=== PATIENT | male | born 1945 | race Caucasian/White ===

== ENCOUNTER 2017-10-18 09:34 | Emergency (ER) | payer OTHER ==
[2017-10-18 09:43] VITALS: BP 141/73; TEMP 99.7; BMI 23.1
--- NOTE | 2017-10-18 10:42 | ED.PDOC ---
General ED Provider: Dr. 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 all times ) Mode of Arrival: Walk-In Information Source: Patient Exam Limitations: No limitations Primary Care Provider: KRISTI SHI Nursing and Triage Documentation Reviewed and Agree: Yes Reviewed sepsis parameters & appropriate labs ordered?: Yes System Inflammatory Response Syndrome: Not Applicable Sepsis Protocol: For patient's 13 years and over: Temp is 96.8 and below OR 101 and greater Pulse >90 BPM Resp >20/minute Acutely Altered Mental Status Are patient's symptoms suggestive of a new infection, such as: -Pneumonia -Skin, Soft Tissue -Endocarditis -UTI -Bone, Joint Infection -Implantable Device -Acute Abdominal Infection -Wound Infection -Meningitis -Blood Stream Catheter Infection -Unknown System Inflammatory Response Syndrome: Not Applicable Review of Systems - Review Of Systems Constitutional: Reports: Malaise, Weakness, Loss of appetite Eyes: Reports: No symptoms Ears, Nose, Mouth, Throat: Reports: No symptoms Respiratory: Reports: Cough Cardiac: Reports: No symptoms GI: Reports: No symptoms : Reports: No symptoms Musculoskeletal: Reports: No symptoms Skin: Reports: No symptoms Neurological: Reports: No symptoms Endocrine: Reports: No symptoms Hematologic/Lymphatic: Reports: No symptoms All Other Systems: Reviewed and Negative Past Medical History - Past Medical History Previously Healthy: Yes Endocrine: Reports: None Cardiovascular: Reports: None Respiratory: Reports: None Hematological: Reports: None Gastrointestinal: Reports: None Genitourinary: Reports: None Neuro/Psych: Reports: None Musculoskeletal: Reports: None Cancer: Reports: None - Surgical History General Surgical History: Reports: None - Family History Family History: Reports: None - Social History Smoking Status: Former smoker Hx Substance Use: No Alcohol Screening: None Physical Exam - Physical Exam Appearance: Well-appearing, No pain distress, Well-nourished Eyes: TAHIR, EOMI, Conjunctiva clear ENT: Ears normal, Nose normal, Oropharynx normal Respiratory: Airway patent, Breath sounds clear, Breath sounds equal, Respirations nonlabored Cardiovascular: RRR, Pulses normal, No rub, No murmur GI/: Soft, Nontender, No masses, Bowel sounds normal, No Organomegaly Musculoskeletal: Normal strength, ROM intact, No edema, No calf tenderness Skin: Warm, Dry, Normal color Neurological: Sensation intact, Motor intact, Reflexes intact, Cranial nerves intact, Alert, Oriented Psychiatric: Affect appropriate, Mood appropriate Critical Care Note - Critical Care Note Total Time (mins): 0 Course - Course Orders, Labs, Meds: Lab Review 10/18/17 10:14 Influenza A (Rapid) Negative by naat Influenza B (Rapid) Positive by naat H Orders Category Date Time Status CBC W/ AUTO DIFF Stat LAB 10/18/17 10:22 Ordered FLU A/B MOLECULAR Stat LAB 10/18/17 10:14 Completed RAPID STREP SCREEN [MOLECULAR GROUP A STREP] Stat LAB 10/18/17 10:[address] CHEST W/O CONTRAST Stat RADS 10/18/17 10:23 Taken Vital Signs: Temp Pulse Resp BP Pulse Ox 10/18/17 09:35 99.7 F H 75 20 141/73 H 93 L Departure - Departure Time of Disposition: 11:00 Disposition: HOME SELF-CARE Discharge Problem: Cough, Influenza Instructions: Influenza (ED) Condition: Good Pt referred to PMD for follow-up: Yes IPMP verified?: Yes Additional Instructions: Please call your Family Physician as soon as possible to schedule a follow-up appointment. Allergies/Adverse Reactions: Allergies No Known Allergies Allergy (Verified 10/18/17 09:44) Home Medications: Ambulatory Orders Celecoxib [Celebrex] 200 mg PO DAILY 02/14/14 Omeprazole [Prilosec] 20 mg PO DAILY 02/14/14 Simvastatin 20 mg PO DAILY 02/14/14 Tramadol HCl [Ultram] 50 mg PO DIRECTED PRN 02/14/14 Disposition Discussed With: Patient
--- NOTE | 2017-10-18 10:49 | CT ---
EXAM: CT of the chest without contrast History: Cough. Comparison: Chest radiograph 06/28/2018 Technique: Multiplanar CT images through the thorax were obtained without the administration of IV c ontrast Findings: Heart size is normal. Coronary calcifications. No pathologically enlarged thoracic lymph nodes. There are partially calcified mediastinal and hilar lymph nodes. Great vessels are unremark able. Mild to moderate emphysema. No consolidation. No pleural fluid and no pneumothorax. No suspicious l tahira masses or lung nodules. Mild diffuse bronchial wall thickening. Within the visualized upper abdomen, calcified granulomas within the spleen. Right nephrolithiasis w ith largest stone measuring 3 mm. Partially visualized abdominal aortic aneurysm measuring 3.9 cm in caliber. No acute osseous abnormalities. Degenerative disc disease within the visualized lower cer vical spine. The Impression: 1. No evidence for pneumonia. 2. Mild diffuse bronchial wall thickening. 3. Emphysema. 4. Coronary artery disease. 5. Partially visualized abdominal aortic aneurysm measuring up to 3.9 cm in caliber. 6. Nonobstructing right nephrolithiasis
== END 2017-10-18 11:05 | disposition home or self-care (01) ==
LOC: ED 09:34
DX: J10.1 Influenza due to other identified influenza virus with other respiratory manifestations (principal); Z79.899 Other long term (current) drug therapy
CPT/HCPCS: 87502; 87651; 99283

== ENCOUNTER 2018-02-19 10:55 | Emergency (ER) | payer OTHER ==
--- NOTE | 2018-02-19 11:02 | ED.PDOC ---
General ED Provider: Dr. KRISTI SHI-ER Chief Complaint: Sore Throat Stated Complaint: rené got allergies and bronchitis Time Seen by Physician: 11:00 Mode of Arrival: Walk-In Information Source: Patient Exam Limitations: No limitations Primary Care Provider: KRISTI SHI Nursing and Triage Documentation Reviewed and Agree: Yes Reviewed sepsis parameters & appropriate labs ordered?: Yes System Inflammatory Response Syndrome: Not Applicable Sepsis Protocol: For patient's 13 years and over: Temp is 96.8 and below OR 101 and greater Pulse >90 BPM Resp >20/minute Acutely Altered Mental Status Are patient's symptoms suggestive of a new infection, such as: -Pneumonia -Skin, Soft Tissue -Endocarditis -UTI -Bone, Joint Infection -Implantable Device -Acute Abdominal Infection -Wound Infection -Meningitis -Blood Stream Catheter Infection -Unknown Respiratory Complaint Exam - Respiratory Complaint/Exam Onset/Duration: 2 dys Symptoms Are: Still present Timing: Intermittent Initial Severity: Mild Current Severity: Mild Location: Nose, Chest Character: Reports: Productive cough Aggravating: Reports: URI Associated Signs and Symptoms: Reports: URI, Nasal congestion, Sore throat. Denies: Rapid breathing, Dyspnea, Fever, Chills, Chest pain, Pleuritic chest pain, Wheezing, Hemoptysis, Dizziness, Calf pain, Calf swelling, Edema, Hoarseness, Sinus discomfort, Vomiting, Weight loss History of Healthcare-Acquired Pneumonia: No Pseudomonas Risk Factors: Reports: None Tuberculosis Risk Factors: Reports: None Status Asthmaticus Risk Factors: Reports: None Home Oxygen Use: No Recent Stress Test: No Recent Echo/LV Function: No Current Antibiotic Use: No Current Asthma Medication Use: No Respiratory Distress: None Inadequate Respiratory Effort: No Dysphagia Present: No Stridor Present: No JVD Present: No Accessory Muscle Use: No Retractions: Diaphragmatic Diminished Breath Sounds: No Sinus Tenderness: None Grunting Respirations: No Kussmaul Respirations: No Differential Diagnoses: Bronchitis, Sinusitis, URI Review of Systems - Review Of Systems Constitutional: Reports: No symptoms Eyes: Reports: No symptoms Ears, Nose, Mouth, Throat: Reports: No symptoms, Nose discharge Respiratory: Reports: Cough Cardiac: Reports: No symptoms GI: Reports: No symptoms : Reports: No symptoms Musculoskeletal: Reports: No symptoms Skin: Reports: No symptoms Neurological: Reports: No symptoms Endocrine: Reports: No symptoms Hematologic/Lymphatic: Reports: No symptoms All Other Systems: Reviewed and Negative Past Medical History - Past Medical History Previously Healthy: Yes Endocrine: Reports: None Cardiovascular: Reports: None Respiratory: Reports: None Hematological: Reports: None Gastrointestinal: Reports: None Genitourinary: Reports: None Neuro/Psych: Reports: None Musculoskeletal: Reports: None Cancer: Reports: None - Surgical History General Surgical History: Reports: None - Family History Family History: Reports: None - Social History Smoking Status: Former smoker Hx Substance Use: No Alcohol Screening: None Physical Exam - Physical Exam Appearance: Well-appearing, No pain distress, Well-nourished Eyes: TAHIR, EOMI, Conjunctiva clear ENT: Rhinorrhea Neck: Supple Respiratory: Airway patent, Breath sounds equal, Respirations nonlabored, Rhonchi Cardiovascular: RRR, Pulses normal, No rub, No murmur GI/: Soft, Nontender, No masses, Bowel sounds normal, No Organomegaly Musculoskeletal: Normal strength, ROM intact, No edema, No calf tenderness Skin: Warm Neurological: Sensation intact, Motor intact, Reflexes intact, Cranial nerves intact, Alert, Oriented Psychiatric: Affect appropriate, Mood appropriate Critical Care Note - Critical Care Note Total Time (mins): 0 Course - Course Vital Signs: Temp Pulse Resp BP Pulse Ox 02/19/18 10:56 98.5 F 76 20 148/75 H 94 L Departure - Departure Time of Disposition: 11:03 Disposition: HOME SELF-CARE Discharge Problem: Bronchitis Allergic rhinitis Qualifiers: Allergic rhinitis trigger: other Allergic rhinitis seasonality: unspecified seasonality Qualified Code(s): J30.89 - Other allergic rhinitis Instructions: Allergic Rhinitis (ED) Condition: Good Pt referred to PMD for follow-up: No IPMP verified?: No Additional Instructions: augmentin 875mg bid x 7 dyas plus prednjisone 20mg x 2 days then 10mg x 2 days then 5mg x 2 days..robitussin ac 1 tsp qid prn cough 125cc---call me on thursday if not improved Allergies/Adverse Reactions: Allergies No Known Allergies Allergy (Verified 02/19/18 10:59) Home Medications: Ambulatory Orders Celecoxib [Celebrex] 200 mg PO DAILY 02/14/14 Omeprazole [Prilosec] 20 mg PO DAILY 02/14/14 Simvastatin 20 mg PO DAILY 02/14/14 Tramadol HCl [Ultram] 50 mg PO DIRECTED PRN 02/14/14 Disposition Discussed With: Patient
[2018-02-19 11:05] VITALS: BP 148/75; TEMP 98.5; BMI 22.7
== END 2018-02-19 11:11 | disposition home or self-care (01) ==
LOC: ED 10:55
DX: J40 Bronchitis, not specified as acute or chronic (principal); J30.89 Other allergic rhinitis
CPT/HCPCS: 99282

== ENCOUNTER 2018-08-28 11:56 | Emergency (ER) | payer OTHER ==
[2018-08-28 12:08] VITALS: BP 146/69; TEMP 98; BMI 23.6
--- NOTE | 2018-08-28 12:27 | ED.PDOC ---
General ED Provider: Dr. KRISTI RHODES Chief Complaint: Neck Pain Non-Injury Stated Complaint: Neck and shoulder pain. Patient presents for evaluation of neck pain. State had onset of soreness to neck and left shoulder area preceding day. States he thought he had lifted something. States he recalls raking yard after which the shoulder/neck became worse. Has been using heating pad but pain continues. States neck is sore if moves head Time Seen by Physician: 12:20 Mode of Arrival: Walk-In Information Source: Patient Exam Limitations: No limitations Primary Care Provider: KRISTI SHI Nursing and Triage Documentation Reviewed and Agree: Yes Does patient meet sepsis criteria?: No System Inflammatory Response Syndrome: Not Applicable Sepsis Protocol: For patient's 13 years and over: Temp is 96.8 and below OR 101 and greater Pulse >90 BPM Resp >20/minute Acutely Altered Mental Status Are patient's symptoms suggestive of a new infection, such as: -Pneumonia -Skin, Soft Tissue -Endocarditis -UTI -Bone, Joint Infection -Implantable Device -Acute Abdominal Infection -Wound Infection -Meningitis -Blood Stream Catheter Infection -Unknown Musculoskeletal Complaint Exam - Neck Pain Complaint/Exam Mechanism of Injury: Reports: No known trauma Onset/Duration: 2 days Symptoms Are: Still present Timing: Intermittent Episodes Lasting: Minutes Initial Severity: Moderate Current Severity: Mild Location: Reports: Discrete Character: Reports: Aching, Spasmodic, Stiffness Aggravating: Reports: Position, Movement Alleviating: Reports: OTC meds, Heat Associated Signs and Symptoms: Denies: Swelling, Redness, Bruising, Fever, Nuchal rigidity, Weakness, Headache, Paresthesia Related History: Denies: Similar episode Related Surgical History: Denies: None Carotid Bruit Present: No Pain on Passive Flexion: Yes Positive Kernig's Sign: No ROM Limited In: Present: Right, Side bending, Rotation Tenderness: Present: Paraspinal Radiates to: Present: Left arm (lt shoulder) Focal Weakness: Present: None Focal Sensory Loss: Reports: None Nexus Low Risk Criteria: No post-midline CS tender Differential Diagnoses: Strain Review of Systems - Review Of Systems Constitutional: Reports: No symptoms Eyes: Reports: No symptoms Ears, Nose, Mouth, Throat: Reports: No symptoms Respiratory: Reports: No symptoms Cardiac: Reports: No symptoms GI: Reports: No symptoms : Reports: No symptoms Musculoskeletal: Reports: No symptoms, Joint pain, Muscle pain, Muscle stiffness , Neck pain Skin: Reports: No symptoms Neurological: Reports: No symptoms Endocrine: Reports: No symptoms Hematologic/Lymphatic: Reports: No symptoms All Other Systems: Reviewed and Negative Past Medical History - Past Medical History Previously Healthy: Yes Endocrine: Reports: None Cardiovascular: Reports: None Respiratory: Reports: None Hematological: Reports: None Gastrointestinal: Reports: None Genitourinary: Reports: None Neuro/Psych: Reports: None Musculoskeletal: Reports: None Cancer: Reports: None - Surgical History General Surgical History: Reports: None - Family History Family History: Reports: None - Social History Smoking Status: Former smoker Hx Substance Use: No Alcohol Screening: None Physical Exam - Physical Exam Appearance: Well-appearing, No pain distress, Well-nourished Eyes: TAHIR, EOMI, Conjunctiva clear ENT: Ears normal, Nose normal, Oropharynx normal Respiratory: Airway patent, Breath sounds clear, Breath sounds equal, Respirations nonlabored Cardiovascular: RRR, Pulses normal, No rub, No murmur GI/: Soft, Nontender, No masses, Bowel sounds normal, No Organomegaly Musculoskeletal: Normal strength, ROM intact, No edema, No calf tenderness Skin: Warm, Dry, Normal color Neurological: Sensation intact, Motor intact, Reflexes intact, Cranial nerves intact, Alert, Oriented Psychiatric: Affect appropriate, Mood appropriate Interpretation - Radiology Interpretation Radiology Interpretation By: Radiologist Exam Interpreted: Other (cervical-multilevel deg disc disease/ t spine normal) Critical Care Note - Critical Care Note Total Time (mins): 0 Course - Course Orders, Labs, Meds: Orders Category Date Time Status CERVICAL SPINE, MIN 4 VIEWS Stat RADS 08/28/18 12:27 Completed THORACIC SPINE, 3 VIEWS Stat RADS 08/28/18 12:27 Completed Vital Signs: Temp Pulse Resp BP Pulse Ox 08/28/18 11:56 98 F 68 16 146/69 H 96 Departure - Departure Time of Disposition: 13:25 Disposition: HOME SELF-CARE Discharge Problem: Degenerative joint disease of cervical spine, Degenerative joint disease of thoracic spine Instructions: Back Pain (ED) Condition: Good Pt referred to PMD for follow-up: Yes (1 wk) IPMP verified?: No Additional Instructions: Take current meds Additionally take Tylenol for pain relief Follow up pcp Avoid aggravating activities\ Allergies/Adverse Reactions: Allergies No Known Allergies Allergy (Verified 08/28/18 12:01) Home Medications: Ambulatory Orders Celecoxib [Celebrex] 200 mg PO DAILY 02/14/14 Omeprazole [Prilosec] 20 mg PO DAILY 02/14/14 Simvastatin 20 mg PO DAILY 02/14/14 Tramadol HCl [Ultram] 50 mg PO DIRECTED PRN 02/14/14 Disposition Discussed With: Patient
--- NOTE | 2018-08-28 13:13 | DI ---
EXAM: Five view cervical spine including obliques COMPARISON: Thoracic spine series from same day HISTORY: Neck pain FINDINGS: There is no acute fracture or subluxation. There is no evidence for acute compression fract ure. There is advanced multilevel degenerative disc disease seen throughout the lower cervical spine. The prevertebral soft tissues are unremarkable. The facets maintain appropriate alignment. The d ens is intact on the open mouth view. There is no significant foraminal stenosis identified. IMPRESSION: 1. Advanced multilevel degenerative changes as described.
--- NOTE | 2018-08-28 13:13 | DI ---
EXAM: Three-view thoracic spine COMPARISON: Cervical spine series from today HISTORY: Back pain FINDINGS: There is no acute fracture or listhesis. There is no compression. Alignment is anatomic. Th ere is modest scattered degenerative change. Soft tissues are unremarkable. There is old granulomatou s disease. IMPRESSION: No acute fracture or listhesis.
== END 2018-08-28 13:36 | disposition home or self-care (01) ==
LOC: ED 11:56
DX: M47.812 Spondylosis without myelopathy or radiculopathy, cervical region (principal); M47.814 Spondylosis without myelopathy or radiculopathy, thoracic region
CPT/HCPCS: 99282

== ENCOUNTER 2019-04-12 06:38 | Day surgery (SDC) | payer OTHER ==
[2019-04-12] MEDS ORDERED: LIDOCAINE 1% 20 ML MDV ID STA (06:57)
[2019-04-12 07:04] VITALS: TEMP 97.6
[2019-04-12 09:09] VITALS: BP 106/51
[2019-04-12] MEDS ORDERED: DIPRIVAN 20 ML VIAL IVP ONE (09:30)
--- NOTE | 2019-04-13 10:11 | OP ---
INDICATIONS FOR PROCEDURE: 74-year-old gentleman presents for a colonoscopy exam. He has past history of adenomatous polyps with his last colonoscopy being in 2013, diverticulosis. MEDICATIONS: SEE ANESTHESIA NOTES. PROCEDURE: COLONOSCOPY. REPORT: The risks, benefits, alternatives and limitations were discussed in detail with the patient. Informed consent was obtained. After adequate sedation was achieved, a digital rectal exam revealed good tone, no masses. The colonoscope was introduced into the rectum and advanced under direct visual guidance to the cecum. The cecum was identified by the appendiceal orifice and IC valve. I then slowly withdrew the scope in a circumferential manner examining the mucosa quite carefully. I looked on the proximal and distal side of folds and flexures as best as possible and was able to retroflex the scope in the right colon and left colon to increase visualization. There was diverticulosis, a moderate amount scattered throughout the sigmoid. On retroflex view of the anal canal there is a small internal hemorrhoid. The prep was good. No other abnormalities are noted. The withdrawal time was 7 minutes and 20 seconds. The patient tolerated the procedure well with stable vital signs and pulse oximetry throughout. IMPRESSION: 1. Sigmoid diverticulosis. 2. Small internal hemorrhoid. RECOMMENDATIONS: 1. High fiber diet. 2. Office visit as needed. 3. Consider colonoscopy surveillance examination again in five years, sooner if there are any signs or symptoms to indicate otherwise. CC: DR. JOSE GUADALUPE DINH
== END 2019-04-12 10:05 | disposition home or self-care (01) ==
LOC: SURG 06:38
PROVIDERS: ATTEND Internal Medicine Gastroenterology
DX: Z86.010 Personal history of colon polyps (principal); K57.90 Diverticulosis of intestine, part unspecified, without perforation or abscess without bleeding; K64.8 Other hemorrhoids
CPT/HCPCS: 00812; G0105